=== PATIENT | male | born 1955 | race Caucasian/White ===

== ENCOUNTER → 2016-12-11 | Outpatient (CLI) | payer OTHER, BC ==
--- NOTE | 2016-12-11 10:42 | DX ---
PA and Lateral Upright Views December 11, 2016, at 9:09 a.m. Clinical History: 61-year-old male with a cough for one month. Rule out pneumonia. ICD-10 Diagnostic Codes: J40, R05, R06.2, and R06.89. Comparison Study: Chest, dated October 22, 2006. Findings: There are surgical clips to the left of the trachea, and there is cervicothoracic junction arthrodesis hardware, which is incompletely imaged. The cardiomediastinal silhouette is normal in siz e. There is some mild central perihilar bronchial wall thickening but no focal infiltrate, atelectasi s, pleural effusion, peripheral interstitial edema, or pneumothorax. There is a mild thoracic kyphosi s with secondary degenerative change. There are three orthopedic anchors projected over the right hum eral head. There is some intraluminal air within the distal thoracic esophageal vestibule versus a hi atal hernia. Impression: 1. Mild perihilar bronchitis without a focal infiltrate. 2. Query hiatal hernia versus air distention of the esophageal vestibule. Given the patient's history of a cough, could he have reflux? As clinically directed, esophagography may be of benefit.
== END ==
LOC: FIMAGING 08:58
PROVIDERS: ATTEND Internal Medicine
DX: R05 Cough (principal); R06.2 Wheezing; R06.89 Other abnormalities of breathing

== ENCOUNTER 2017-01-01 18:17 | Inpatient (IN) | payer OTHER, BC ==
--- NOTE | 2017-01-01 18:34 | EDPHY ---
H & P Stated Complaint: Post op pain L shoulder;surg 12/17;increased pain x 2days;sent for eval - Personal History Current Tetanus Diphtheria and Acellular Pertussis (TDAP): No - Medical/Surgical History Other PMH: rotator cuff surg 12/2016. [facility] - Social History Smoking Status: Former smoker Time Seen by Provider: 01/01/17 18:19 HPI/ROS: Chief complaint: Left shoulder pain, status post surgery History of present illness: This is a 61-year-old male sent to the emergency department by his orthopedic group for evaluation of left shoulder pain. Patient had an arthroscopic rotator cuff repair on December 17. He has been doing well until the last 2 days when he has developed increasing pain. Significant pain with range of motion. He was seen by his orthopedic group today, blood studies were obtained and he was noted to have an increased white blood cell count and C reactive protein. He was sent here for ultrasound guided joint aspiration to assess for infection. Patient does report pain. He denies other associated signs or symptoms. Review of systems: A 10 point review of systems was obtained and other than described above was negative (Madhu Saxena) - Physical Exam Exam: General Appearance: Alert, nontoxic. Eyes: Pupils equal and round no pallor or injection. ENT, Mouth: Mucous membranes moist. Respiratory: There are no retractions, lungs are clear to auscultation. Cardiovascular: Regular rate and rhythm. Radial pulses 2+ bilaterally. Gastrointestinal: Abdomen is soft and nontender, no masses, bowel sounds normal. Neurological: Alert and oriented. Strength and sensation intact and symmetrical. Skin: Warm and dry, no rashes. Musculoskeletal: Left shoulder is in an immobilizer. Psychiatric: Patient is oriented X 3, there is no agitation. (Madhu Saxena) Constitutional: Initial Vital Signs Temperature (C) 37.2 C 01/01/17 18:19 Heart Rate 98 01/01/17 18:19 Respiratory Rate 18 01/01/17 18:19 Blood Pressure 127/90 H 01/01/17 18:19 O2 Sat (%) 94 01/01/17 18:19 O2 Delivery Mode Room Air Allergies/Adverse Reactions: Penicillins Allergy (Unknown, Verified 01/01/17 18:26) Sulfa (Sulfonamide Antibiotics) Allergy (Unknown, Verified 01/01/17 18:26) Tetanus Vaccines and Toxoid Allergy (Unknown, Verified 01/01/17 18:26) Home Medications: Medication Instructions Recorded Aspirin [Aspirin 81mg (*)] 81 mg PO DAILY 01/01/17 Ibuprofen [Motrin (*)] 400 - 600 mg PO HS PRN 01/01/17 Multivitamins [Multivitamin (*)] 1 each PO DAILY 01/01/17 oxyCODONE IR [Oxycodone Ir (*)] 5 mg PO DAILY PRN 01/01/17 Medical Decision Making - Diagnostics Imaging: Left upper extremity ultrasound reveals a DVT, see report for complete details ( Madhu Saxena) ED Course/Re-evaluation: The patient was evaluated and managed by the physician's delivery assistant. My cosignature indicates that I reviewed the chart and I agree with the findings and plan of care as documented. I am the secondary supervising physician. ( Judie Champion) Patient is discussed with my secondary supervising physician Dr. Judie Champion. Patient presents to the emergency department for evaluation of left shoulder pain. He is sent by his orthopedic group for concern for septic shoulder. Ultrasound guided arthrocentesis is performed by Radiology. Evaluation of the aspirate is concerning for infection. Further a DVT is noted on US. Patient will be admitted to hospitalist service Dr. Deena Sheth. On- call orthopedic surgery Dr. Fields will see patient. On-call infectious disease specialist Dr. Woods has recommended monotherapy at this time with vancomycin. She will also consult on patient. I did discuss with hospitalist that I am not going to start patient on anticoagulants for his DVT in the ER as he is likely going to the OR this evening for washout. Follow-up on DVT and treatment will be determined by the hospitalist and orthopedic doctor. (Madhu Saxena) Differential Diagnosis: Included but not limited to postsurgical pain, septic joint, blood clot, fracture, dislocation (Madhu Saxena) - Data Points Laboratory Results: Laboratory Results 01/01/17 17:45 01/01/17 17:45 01/01/17 01/01/17 01/01/17 19:15 17:45 17:45 WBC RBC Hgb Hct MCV MCH MCHC RDW Plt Count MPV Neut % (Auto) Lymph % (Auto) [place] % (Auto) Eos % (Auto) Baso % (Auto) Nucleat RBC Rel Count Absolute Neuts (auto) Absolute Lymphs (auto) Absolute Monos (auto) Absolute Eos (auto) Absolute Basos (auto) Absolute Nucleated RBC Immature Gran % Immature Gran # PT 14.2 SEC SEC (12.0-15.0) INR 1.11 (0.83-1.16) APTT 29.8 SEC SEC (23.0-38.0) Sodium 139 mEq/L mEq/L (134-144) Potassium 3.9 mEq/L mEq/L (3.5-5.2) Chloride 102 mEq/L mEq/L (97-110) Carbon Dioxide 26 mEq/l mEq/l (22-31) Anion Gap 11 mEq/L mEq/L (8-16) BUN 13 mg/dL mg/dL (7-23) Creatinine 0.8 mg/dL mg/dL (0.7-1.3) Estimated GFR > 60 Glucose 97 mg/dL mg/dL (70-100) Calcium 9.7 mg/dL mg/dL (8.5-10.4) Synovial Source SYNOVIAL Synovial Color YELLOW H (CLS/PALE YL) Synovial Appearance CLOUDY H (CLEAR) Synovial WBC 80788 /mm3 H /mm3 (0-150) Synovial RBC 49060 /mm3 H /mm3 (0-0) Synovial Neutrophils 98 % H % (0-25) Synovial Lymphocytes 2 % % Synovial Crystals Pending 01/01/17 17:45 WBC 11.06 10^3/uL H 10^3/uL (3.80-9.50) RBC 4.72 10^6/uL 10^6/uL (4.40-6.38) Hgb 14.4 g/dL g/dL (13.7-17.5) Hct 42.7 % % (40.0-51.0) MCV 90.5 fL fL (81.5-99.8) MCH 30.5 pg pg (27.9-34.1) MCHC 33.7 g/dL g/dL (32.4-36.7) RDW 12.8 % % (11.5-15.2) Plt Count 351 10^3/uL 10^3/uL (150-400) MPV 9.0 fL fL (8.7-11.7) Neut % (Auto) 64.3 % % (39.3-74.2) Lymph % (Auto) 21.7 % % (15.0-45.0) [place] % (Auto) 11.5 % % (4.5-13.0) Eos % (Auto) 1.4 % % (0.6-7.6) Baso % (Auto) 0.8 % % (0.3-1.7) Nucleat RBC Rel Count 0.0 % % (0.0-0.2) Absolute Neuts (auto) 7.11 10^3/uL H 10^3/uL (1.70-6.50) Absolute Lymphs (auto) 2.40 10^3/uL 10^3/uL (1.00-3.00) Absolute Monos (auto) 1.27 10^3/uL H 10^3/uL (0.30-0.80) Absolute Eos (auto) 0.16 10^3/uL 10^3/uL (0.03-0.40) Absolute Basos (auto) 0.09 10^3/uL 10^3/uL (0.02-0.10) Absolute Nucleated RBC 0.00 10^3/uL 10^3/uL (0-0.01) Immature Gran % 0.3 % % (0.0-1.1) Immature Gran # 0.03 10^3/uL 10^3/uL (0.00-0.10) PT INR APTT Sodium Potassium Chloride Carbon Dioxide Anion Gap BUN Creatinine Estimated GFR Glucose Calcium Synovial Source Synovial Color Synovial Appearance Synovial WBC Synovial RBC Synovial Neutrophils Synovial Lymphocytes Synovial Crystals Microbiology Results: MICROBIOLOGY 01/01/17 19:15 Shoulder - Aspirate Gram Stain - Final Departure - Departure Disposition: [facility] Inpatient Acute Clinical Impression: Septic joint of left shoulder region Qualifiers: Septic arthritis organism: due to unspecified organism Qualified Code(s): M00.9 - Pyogenic arthritis, unspecified DVT (deep venous thrombosis) Qualifiers: DVT location: upper extremity Affected thrombotic vein of extremity: other upper extremity vein Laterality: left Chronicity: acute Qualified Code(s): I82.622 - Acute embolism and thrombosis of deep veins of left upper extremity Condition: Fair
[2017-01-01] MEDS ORDERED: NA BICARBONATE 50 MEQ/50 ML VIAL ONE (18:54)
[2017-01-01 19:55] LABS: % IMMATURE GRANULYOCYTES 0.3 % (0.0-1.1); ABSOLUTE IMMATURE GRANULOCYTES 0.03 10^3/uL (0.00-0.10); ADD DIFF? NO; ADD MORPH? NO; ADD SCAN? NO; ATYPICAL LYMPHOCYTE FLAG 10 (0-99); FRAGMENT RBC FLAG 0 (0-99); HEMATOCRIT 42.7 % (40.0-51.0); HEMOGLOBIN 14.4 g/dL (13.7-17.5); LEFT SHIFT FLG 0 (0-99); LIPEMIA HEMOLYSIS FLAG 80 (0-99); MEAN CELL HEMOGLOBIN 30.5 pg (27.9-34.1); MEAN CELL HEMOGLOBIN CONCENTR. 33.7 g/dL (32.4-36.7); MEAN CELL VOLUME 90.5 fL (81.5-99.8); PLATELET CLUMPS FLAG 0 (0-99); PLATELET COUNT 351 10^3/uL (150-400); RED BLOOD CELL COUNT 4.72 10^6/uL (4.40-6.38); RED CELL DISTRIBUTION WIDTH 12.8 % (11.5-15.2)
[2017-01-01 19:58] LABS: INR 1.11 (0.83-1.16); PROTIME(PATIENT) 14.2 SEC (12.0-15.0)
[2017-01-01 19:59] LABS: APTT 29.8 SEC (23.0-38.0)
[2017-01-01 20:05] LABS: WBC, SYNOVIAL FLUID 83047 /mm3 (0-150)
[2017-01-01 20:05] LABS: ANION GAP 11 mEq/L (8-16); CALCIUM 9.7 mg/dL (8.5-10.4); CARBON DIOXIDE 26 mEq/l (22-31); CHLORIDE 102 mEq/L (97-110); CREATININE 0.8 mg/dL (0.7-1.3); GLOMERULAR FILTRATION RATE > 60; GLUCOSE 97 mg/dL (70-100); POTASSIUM 3.9 mEq/L (3.5-5.2); SODIUM 139 mEq/L (134-144)
[2017-01-01] MEDS ORDERED: VANCOMYCIN 1.25 GM in D5W 250 ML IV ONE (21:00)
[2017-01-01 21:58] LABS: CRYSTALS, SYNOVIAL FLUID NONE SEEN (NONE SEEN)
--- NOTE | 2017-01-01 22:58 | PDGENHP ---
History and Physical History and Physical: Orthopaedic Surgery Consult HPI: 61y RHD M s/p Left Rotator cuff repair 12/17/2016 by Nida Tabares p/w 2 days of increasing L shoulder pain. Had some subjective chills but did not measure himself ot determine if he had a fever. Pain was very bad yesterday (took two oxycontin last night for increased pain after having been off of them). some improvement just recently, pain now 3/10. Some spasms in the shoulder and neck musculature. No numbness or tingling in LUE. PMHx: prior blood clots and DVT - extensive workup negative, per pt. Denies arthropathies before PSHx: R shoulder scope, R elbow removal of foreign bodies, c5-c6 fusion, lens replacements FamHx: denies h/o clots in family. 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 variable drinking from 4-5 pints per week to few drinks at all Meds: ASA, Vitamin ROS: No changes in vision/hearing. Minimal nausea. No Pulm or CV issues. No GI upset. No issues. Notes some intermittent inner right thigh pain over past years PE: AxOx3 unlabored breathing LUE in sling. TTP along trapezius, not midline posterior Minimal edema of L shoulder. Moderate TTP Left shoulder. Pain with ROM L shoulder. Increased warmth SILT A/R/U/M. 5/5 APB/EPL/FDS/FDP2,5/IO 2+ Rad pulse Aspirate (by ED): 83K WBC AP: 61y RHD M s/p cuff repair 12/17/2016 p/w L septic shoulder - Plan for OR arthroscopic I&D of Left shoulder - Pt ate in afternoon. Case delayed until anesthesia appropriate - Pain control - Recommend BUE and BLE venous doppler ultrasounds to rule out DVTs given history of thigh pain and report of LUE DVT during joint aspiration - NWB LUE - Discussed risks of surgery with patient including neurovascular injury, bleeding, incomplete pain relief, recurrent infection, structural/cuff injury
[2017-01-01] MEDS ORDERED: fentaNYL 100 MCG/2 ML INJ ONE ×2 (23:06→23:26)
[2017-01-01] MEDS ORDERED: PROPOFOL 200 MG/20 ML VIAL ONE (23:06)
[2017-01-01] MEDS ORDERED: ONDANSETRON 4 MG/2 ML VIAL ONE (23:07)
[2017-01-01] MEDS ORDERED: LIDOCAINE 2% 5 ML SDV ONE (23:07)
[2017-01-01] MEDS ORDERED: DEXAMETHASONE 4 MG/ML VIAL ONE (23:07)
[2017-01-01] MEDS ORDERED: SUCCINYLCHOLINE CHLORIDE*ANESTHESIA ONLY*200 MG/10 ML SYR IVP ONE (23:07)
[2017-01-01] MEDS ORDERED: LIDO/EPI 1% **Not for Epidural 20 ML MDV ONE (23:18)
[2017-01-01] MEDS ORDERED: BUPIVACAINE/EPI 0.25% 30 ML SDV ONE (23:18)
[2017-01-01] MEDS ORDERED: PHENYLEPHRINE HCL 100 MCG/ML SYR ONE ×2 (23:29→23:43)
[2017-01-01] MEDS ORDERED: HYDROmorphONE/DILAUDID 2 MG/ML INJ ONE (23:30)
[2017-01-01] MEDS ORDERED: VASOPRESSIN 20 UNIT/ML VIAL ONE (23:48)
[2017-01-02] MEDS ORDERED: LIDOCAINE 1% 5 ML SDV ONE (01:28)
--- NOTE | 2017-01-02 01:40 | POSTOPPROG ---
Post Op Note Date of Operation: 01/02/17 Surgeon: Emmanuel Fields Anesthesia: GET(General Endotracheal) Pre-op Diagnosis: Left septic shoulder Post-op Diagnosis: Same Indication: 61y M s/p L rotator cuff repair surgery 12/17/2016 p/w ~2 days of L sh pain Procedure: Arthroscopic I&D of Left shoulder Findings: Infection in L shoulder joint and subacromial space Inf/Abcess present in the surg proc area at time of surgery?: Yes
[2017-01-02] MEDS ORDERED: ONDANSETRON 4 MG/2 ML VIAL IVP PRN (03:40)
[2017-01-02] MEDS ORDERED: ONDANSETRON DISINTEGRATING 4 MG TAB PO PRN (03:40)
[2017-01-02] MEDS ORDERED: HYDROCODONE/APAP 5/325 TAB PO PRN (03:55)
[2017-01-02] MEDS ORDERED: HYDROmorphONE/DILAUDID 1 MG/ML SYR IVP PRN (03:55)
[2017-01-02] MEDS ORDERED: ACETAMINOPHEN 500 MG TAB PO PRN (03:55)
[2017-01-02] MEDS ORDERED: NS 1,000 ML IV SCH (04:00)
--- NOTE | 2017-01-02 04:38 | PDGENHP ---
History and Physical - Chief Complaint L shoulder pain - History of Present Illness Patient is a 61-year-old male with a history of DVT in the remote past, osteoarthritis with multiple orthopedic surgeries, most recently left rotator cuff repair on 12/17 who presents to the ED with worsening left shoulder pain. Patient states initially postoperatively pain was tolerable, he took the prescribed opiates for only 2 days, and then his pain was controlled with NSAIDs only. However about 2 days ago he began to have new, more intense pain in the joint. On the evening of 12/31 he reports subjective fever and chills and significant pain not relieved by his prescribed Bentley. Today he was at his a.m. physical therapy appointment when the PT noticed increased swelling in the joint and patient complained of intense pain. His orthopedist's office was called, and recommended he come in for lab evaluation. ESR and CRP were ordered and were both elevated, so patient was advised to come to the ED for further evaluation. On arrival to the ED patient was afebrile and hemodynamically stable. Labs revealed mild leukocytosis and exam was concerning for septic joint. For id was consulted and he was initiated on IV vancomycin. Ultrasound of the left upper extremity was obtained and revealed new left subclavian thrombus extending into the left axillary and basilic veins. Patient was then brought to the OR for washout of his joint and then admitted to the hospital service for further management. History Information - Allergies/Home Medication List Allergies/Adverse Reactions: Penicillins Allergy (Unknown, Verified 01/01/17 18:26) Sulfa (Sulfonamide Antibiotics) Allergy (Unknown, Verified 01/01/17 18:26) Tetanus Vaccines and Toxoid Allergy (Unknown, Verified 01/01/17 18:26) Home Medications: Aspirin [Aspirin 81mg (*)] 81 mg PO DAILY 01/01/17 [Last Taken 01/01/17] Ibuprofen [Motrin (*)] 400 - 600 mg PO HS PRN 01/01/17 [Last Taken Unknown] Multivitamins [Multivitamin (*)] 1 each PO DAILY 01/01/17 [Last Taken 01/01/17] oxyCODONE IR [Oxycodone Ir (*)] 5 mg PO DAILY PRN 01/01/17 [Last Taken 12/31/16 21:00] I have personally reviewed and updated: family history, medical history, social history, surgical history - Past Medical History Additional medical history: CVA, 2004, no residual deficits. cervical radiculopathy. history of right upper extremity DVT - Surgical History Additional surgical history: bilateral rotator cuff repairs. C-spine fusion x2. right elbow fracture repair x2. 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 [employer] Review of Systems ROS: 10pt was reviewed & negative except for what was stated in HPI & below Physical Exam Temp Pulse Resp BP Pulse Ox 36.6 C 92 13 113/73 97 01/02/17 02:07 01/02/17 02:07 01/02/17 02:07 01/02/17 02:07 01/02/17 02:07 O2 (L/minute) 3 Constitutional: no apparent distress, appears nourished, not in pain Eyes: PERRL, anicteric sclera, EOMI Ears, Nose, Mouth, Throat: moist mucous membranes, hearing normal, ears appear normal, no oral mucosal ulcers Cardiovascular: regular rate and rhythym, no murmur, rub, or gallop, pulses symmetric bilaterally, No JVD, No edema Peripheral Pulses: 2+: dorsalis-pedis (R), dorsalis-pedis (L) Respiratory: no respiratory distress, no rales or rhonchi, clear to auscultation Gastrointestinal: normoactive bowel sounds, soft, non-tender abdomen, no palpable masses, No guarding, No rebound, No distension Genitourinary: no bladder fullness, no bladder tenderness Skin: warm, normal color, no rashes or abrasions, no fluctuance, no induration, No mottled Musculoskeletal: other ( left shoulder in sling with operative dressing in place clean dry and intact.) Neurologic: AAOx3, sensation intact bilaterally, CN II-XII Intact, No weakness, No numbness, No pronator drift Psychiatric: interacting appropriately, not anxious, not encephalopathic, thought process linear Lab Data & Imaging Review 01/01/17 17:45 01/01/17 17:45 WBC 11.06 10^3/uL (3.80-9.50) H 01/01/17 17:45 RBC 4.72 10^6/uL (4.40-6.38) 01/01/17 17:45 Hgb 14.4 g/dL (13.7-17.5) 01/01/17 17:45 Hct 42.7 % (40.0-51.0) 01/01/17 17:45 MCV 90.5 fL (81.5-99.8) 01/01/17 17:45 MCH 30.5 pg (27.9-34.1) 01/01/17 17:45 MCHC 33.7 g/dL (32.4-36.7) 01/01/17 17:45 RDW 12.8 % (11.5-15.2) 01/01/17 17:45 Plt Count 351 10^3/uL (150-400) 01/01/17 17:45 MPV 9.0 fL (8.7-11.7) 01/01/17 17:45 Neut % (Auto) 64.3 % (39.3-74.2) 01/01/17 17:45 Lymph % (Auto) 21.7 % (15.0-45.0) 01/01/17 17:45 [place] % (Auto) 11.5 % (4.5-13.0) 01/01/17 17:45 Eos % (Auto) 1.4 % (0.6-7.6) 01/01/17 17:45 Baso % (Auto) 0.8 % (0.3-1.7) 01/01/17 17:45 Nucleat RBC Rel Count 0.0 % (0.0-0.2) 01/01/17 17:45 Absolute Neuts (auto) 7.11 10^3/uL (1.70-6.50) H 01/01/17 17:45 Absolute Lymphs (auto) 2.40 10^3/uL (1.00-3.00) 01/01/17 17:45 Absolute Monos (auto) 1.27 10^3/uL (0.30-0.80) H 01/01/17 17:45 Absolute Eos (auto) 0.16 10^3/uL (0.03-0.40) 01/01/17 17:45 Absolute Basos (auto) 0.09 10^3/uL (0.02-0.10) 01/01/17 17:45 Absolute Nucleated RBC 0.00 10^3/uL (0-0.01) 01/01/17 17:45 Immature Gran % 0.3 % (0.0-1.1) 01/01/17 17:45 Immature Gran # 0.03 10^3/uL (0.00-0.10) 01/01/17 17:45 PT 14.2 SEC (12.0-15.0) 01/01/17 17:45 INR 1.11 (0.83-1.16) 01/01/17 17:45 APTT 29.8 SEC (23.0-38.0) 01/01/17 17:45 Sodium 139 mEq/L (134-144) 01/01/17 17:45 Potassium 3.9 mEq/L (3.5-5.2) 01/01/17 17:45 Chloride 102 mEq/L (97-110) 01/01/17 17:45 Carbon Dioxide 26 mEq/l (22-31) 01/01/17 17:45 Anion Gap 11 mEq/L (8-16) 01/01/17 17:45 BUN 13 mg/dL (7-23) 01/01/17 17:45 Creatinine 0.8 mg/dL (0.7-1.3) 01/01/17 17:45 Estimated GFR > 60 01/01/17 17:45 Glucose 97 mg/dL (70-100) 01/01/17 17:45 Calcium 9.7 mg/dL (8.5-10.4) 01/01/17 17:45 Synovial Source SYNOVIAL 01/01/17 19:15 Synovial Color YELLOW (CLS/PALE YL) H 01/01/17 19:15 Synovial Appearance CLOUDY (CLEAR) H 01/01/17 19:15 Synovial WBC 84338 /mm3 (0-150) H 01/01/17 19:15 Synovial RBC 89604 /mm3 (0-0) H 01/01/17 19:15 Synovial Neutrophils 98 % (0-25) H 01/01/17 19:15 Synovial Lymphocytes 2 % 01/01/17 19:15 Visualized and Interpreted imaging results: Yes Interpretation: Left upper extremity Doppler: Extensive left upper extremity DVT of left subclavian to left basilic vein Assessment & Plan Assessment: patient is a 61-year-old male with history of CVA, prior DVT and recent left rotator cuff repair who presents with increased left shoulder pain. Was determined to have left septic arthritis, is now S/P joint washout and culture. In addition patient has new left upper extremity DVT. Plan: # septic arthritis Patient with leukocytosis and left joint fluid aspiration consistent with septic arthritis in recently operated left shoulder joint. He is now status post OR washout. Will follow up blood and fluid cultures, continue IV vancomycin and will follow up ID consult. Patient does not meet sepsis criteria given lack of fever, tachypnea or tachycardia. Will control pain prn and given gentle IVF hydration. # Acute left upper extremity DVT This is patient's 2nd DVT, although both appear to have been provoked by surgical procedure. Will initiate systemic anticoagulation with Lovenox as patient decides his preference for long-term therapy. Patient does not have any chest pain, palpitations, shortness of breath, tachypnea or hypoxia that is concerning for pulmonary embolism. Will check dopplers of all extremities and also TTE. # h/o CVA Patient without any obvious deficits. Will continue aspirin in addition to systemic anticoagulation. # dispo: admit to inpatient service for > 2 [place] stay given septic arthritis # gen: regular diet DVT ppx: on systemic lovenox Full code
[2017-01-02] MEDS ORDERED: CALCIUM CARBONATE 500 MG CHEWABLE TAB PO PRN (04:56)
[2017-01-02] MEDS ORDERED: ENOXAPARIN 80 MG/0.8 ML SYR SC ONE (05:00)
[2017-01-02 05:55] LABS: % IMMATURE GRANULYOCYTES 0.5 % (0.0-1.1); ABSOLUTE IMMATURE GRANULOCYTES 0.05 10^3/uL (0.00-0.10); ADD DIFF? NO; ADD MORPH? NO; ADD SCAN? NO; ATYPICAL LYMPHOCYTE FLAG 0 (0-99); FRAGMENT RBC FLAG 0 (0-99); HEMATOCRIT 35.8 % (40.0-51.0); HEMOGLOBIN 12.3 g/dL (13.7-17.5); LEFT SHIFT FLG 10 (0-99); LIPEMIA HEMOLYSIS FLAG 90 (0-99); MEAN CELL HEMOGLOBIN 30.5 pg (27.9-34.1); MEAN CELL HEMOGLOBIN CONCENTR. 34.4 g/dL (32.4-36.7); MEAN CELL VOLUME 88.8 fL (81.5-99.8); MEAN PLATELET VOLUME 9.1 fL (8.7-11.7); PLATELET CLUMPS FLAG 0 (0-99); PLATELET COUNT 289 10^3/uL (150-400); RED BLOOD CELL COUNT 4.03 10^6/uL (4.40-6.38); RED CELL DISTRIBUTION WIDTH 12.7 % (11.5-15.2)
[2017-01-02 06:16] LABS: INR 1.19 (0.83-1.16); PROTIME(PATIENT) 15.1 SEC (12.0-15.0)
[2017-01-02 06:17] LABS: APTT 30.9 SEC (23.0-38.0)
[2017-01-02 06:27] LABS: ANION GAP 10 mEq/L (8-16); CALCIUM 8.9 mg/dL (8.5-10.4); CARBON DIOXIDE 23 mEq/l (22-31); CHLORIDE 106 mEq/L (97-110); CREATININE 0.8 mg/dL (0.7-1.3); GLOMERULAR FILTRATION RATE > 60; GLUCOSE 174 mg/dL (70-100); MAGNESIUM 2.1 mg/dL (1.6-2.3); POTASSIUM 4.7 mEq/L (3.5-5.2); SODIUM 139 mEq/L (134-144)
[2017-01-02 06:54] LABS: C-REACTIVE PROTEIN 175.4 mg/L (<10.0)
[2017-01-02 08:12] LABS: SEDIMENTATION RATE 51 MM/HR (0-20)
[2017-01-02] MEDS: ENOXAPARIN 80 MG/0.8 ML SYR SC SCH ×2 (09:19→20:41)
[2017-01-02] MEDS: VANCOMYCIN 1.25 GM in D5W 250 ML IV SCH ×2 (09:19→20:41)
--- NOTE | 2017-01-02 10:28 | HOSPPROG ---
Hospitalist Progress Note Assessment/Plan: DIAGNOSES: -Septic arthritis postoperative left shoulder -DVT left upper extremity, extensive without signs of PE PLANS: -follow cultures closely continue current vancomycin antibiotic -Continue anticoagulation -Ambulation SUBJECTIVE: - much less chills today and less pain -Eating well OBJECTIVE Vitals reviewed: stable without fever Exam: alert oriented skin warm dry color ok resps not labored lungs clear BSs heart regular abd soft nondistended nontender, bowel sounds present limbs his left hand is warmer and less swollen than yesterday, shoulder is in dressing, limbs otherwise warm, no edema iv site ok Cultures with no growth to date Objective: Vital Signs Temp Pulse Resp BP Pulse Ox 36.6 C 84 16 120/81 H 95 01/02/17 07:12 01/02/17 07:12 01/02/17 07:12 01/02/17 07:12 01/02/17 07:12 Microbiology 01/01/17 23:50 Gram Stain - Final Shoulder - Anaerobic Tube/Swab 01/01/17 23:50 Gram Stain - Final Shoulder - Swab Laboratory Results 01/02/17 05:13 01/02/17 05:13 01/01/17 01/02/17 01/03/17 06:59 06:59 06:59 Intake Total 1780 Output Total 805 725 Balance 975 -725 PT 15.1 SEC (12.0-15.0) H 01/02/17 05:13 INR 1.19 (0.83-1.16) H 01/02/17 05:13 ICD10 Worksheet Patient Problems: Problems Problem Status Onset DVT (deep venous thrombosis) Acute Septic joint of left shoulder region Acute
--- NOTE | 2017-01-02 12:50 | SUROPNOTE ---
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 Aspirate from ED had 83k WBC Operative report: Consent was reviewed with the patient and he elected to proceed. The patient was taken to OR and transferred to the bed. Anesthesia was induced. The head was carefully guided into the hu and the patient raised into the beach chair position with a bump under his knees. The nonop arm was placed on foam and protected. The operative arm was hung with kerlix from a post and the back of the bed removed to expose the operative shoulder. The arm and shoulder were prepped and draped in the typical fashion. A timeout was performed confirming the patient, procedure, and surgical site. The prior incisions were marked out. The posterior portal was created and purulent fluid was expressed from the joint when the obturator was removed from the trocar. Some of this fluid was sent for specimen. The camera was introduced and synovitis and thready tissue seen in the glenohumeral joint. The anterior portal was re-established and the shaver introduced. The shaver was used to remove a large amount of synovitis around the joint. inspection of the joint demonstrated that the rotator cuff repair was still intact on the foot print. The camera and shaver were switched to allow for additional debridement from the posterior angle/access. After satisfactory debridement performed, the obturator and trocar were re-introduced into the subacromial space from the posterior portal. additional purulent fluid drained from this space after the obturator removed. This was also sent off The camera was inserted and the anterolateral portal re-established to the subacromial space. A larger amount of synovitis, mucus-like tissue and substance was visible in this space. The shaver was introduced and the subacromial space debrided. The intact suture anchors/mattress were found after debriding off the rotator cuff substance. the rotator cuff repair was found to be stable. Extensive debridement was performed anteriorly, laterally in the sulcus, superiorly under the acromion, and posteriorly. A smaller debridement was done medially to avoid bleeding. Final images were taken of the debrided space. ~9 liters of fluid had been delivered through the joint. The instruments were removed, excess fluid pushed out of the joint and the portals closed with 3-O nylon sutures and then sterile dressings applied. The patient was placed back into his brace/sling. He was transferred back to the bed and taken to PACU Instrument count correct at the conclusion of the case Implants: None Complications: None EBL: 50cc Specimen: cultures Drain: None
--- NOTE | 2017-01-02 14:00 | GCON ---
INFECTIOUS DISEASE CONSULTATION DATE OF CONSULTATION: 01/02/2017 Requesting physician: Dr. Emmanuel Fields. REASON FOR CONSULTATION: To assist in the management of this 61-year-old male, status post rotator cuff repair on December 17, now with left shoulder septic arthritis/ postoperative infection. HISTORY OF PRESENT ILLNESS: The patient is a 61 -year-old gentleman whose previous medical history is notable for the followin. History of right upper extremity DVT 25 years ago, treated with Coumadin for 6 months. 2. History of CVA in 2002, no residual deficits. The patient states he had a "huge workup" at the time for hypercoagulable state that was negative. The patient declined taking Coumadin for life and has been taking baby aspirin ever since. 3. Cervical radiculopathy. Previous surgical history: 1. History of right rotator cuff repair. 2. C-spine fusion x2. 3. Right elbow fracture repair x2. 4. Tonsillectomy. Regarding his present issues, the patient underwent a left rotator cuff repair on December 17 without complications. He states that it was hurting more than he felt it should be. The incisions were never red and never drained. He states that he was trying to do his physical therapy exercises, but over time these became more difficult with increasing pain. He also noticed that his left arm began to swell. This past week, the patient developed some tactile fevers and shaking chills, and the pain continued to worsen. He saw his orthopedic surgeon who arranged for an arthrocentesis. This was done yesterday and revealed 83,047 whites and 33,487 reds, with 98% neutrophils. Gram stain is showing rare gram-positive cocci. The patient was referred to the emergency room for further evaluation and treatment of left shoulder septic arthritis. He was started on vancomycin. The patient was taken to the emergency room last night by Dr. Emmanuel Fields who tells me that there was evidence of infection in the left shoulder joint, but the rotator cuff repair itself looks fine, with sutures in place. There was infection in both the left shoulder joint and subacromial space. This was thoroughly washed out. Cultures were obtained. Gram stain showed 2+ polys and rare gram-positive cocci. I am now asked to assist in his management. Also of note, the patient had a left upper extremity ultrasound that showed a significant and extensive left upper extremity venous thrombosis extending from the left subclavian vein through the axillary and basilic veins to the elbow. Postoperatively, the patient states he feels much better. His pain is under control. He denies presently fever, shaking chills, nausea, vomiting, and diarrhea. He is mildly constipated. No burning with urination or other. Aside from what is listed above, 10 systems are reviewed, and all are negative. He has no tingling or numbness in his hands or arms, and no pleuritic pain or shortness of breath. PREVIOUS MEDICAL HISTORY: As outlined above. ALLERGIES: Penicillin, sulfa, tetanus vaccine. MEDICATIONS: Presently include vancomycin 1.25 g IV q.12 hours, [place], Zofran, and Lovenox. SOCIAL HISTORY: The patient lives in [place] and is . History of tobacco many years ago as a teenager for 5 years. Minimal alcohol. No illicit substances. 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 No unusual exposures. FAMILY HISTORY: Unremarkable for any clotting disorders. His father had AML. REVIEW OF SYSTEMS: As outlined above. Otherwise, 10 systems are reviewed, and all are negative. PHYSICAL EXAMINATION: VITAL SIGNS: T-current 37. T-max is same. Heart rate 83. Blood pressure 111/69. He is satting 96% on 3 L. GENERAL: Well-nourished , well-developed gentleman lying in bed, in no apparent distress. HEENT: Atraumatic, normocephalic. Pupils equal, round, and react to light. Extraocular movements are intact. No conjunctival injection. No icterus or petechiae. Mucous membranes moist. No oral lesions noted. Dentition in fair repair. NECK: Trachea is midline. No thyromegaly or palpable thyroid nodules. No cervical or supraclavicular lymphadenopathy. CARDIOVASCULAR: S1 and S2. No rubs, gallops, or murmurs. LUNGS: Clear to auscultation anterolaterally, with no rales, rhonchi, or wheeze. The patient's left shoulder is dressed with a primary surgical dressing; I did not take this down. ABDOMEN: Soft. No organomegaly or tenderness to palpation. No muscle belly tenderness. EXTREMITIES: No clubbing, cyanosis, or edema. SKIN: Warm and dry. No obvious rashes. LABORATORY DATA: Microbiology: Blood cultures x2 from January 01 are pending. Shoulder shows 1+ PMNs and rare gram-positive cocci. Operative culture showed 2 + PMNs and rare gram-positive cocci. White blood cell count of 9.8, down from 11 on admission. Hematocrit of 35.8. Platelet count of 289. CRP of 175. BUN and creatinine 10/0.8. Liver function tests within normal limits. IMPRESSION: 61-year-old male status- post left rotator cuff repair on December 17, who now presents with postoperative left shoulder septic arthritis and extensive LUE venous thrombosis. Likely pathogens include Staphylococcus, including MRSA/ MSSA and coagulase-negative Staph. P acnes can also be culpable in this scenario. Gram negative pathogens seem less likely. PLAN: 1. Blood cultures have been sent and are pending. 2. Continue Vancomycin as you are; check trough tomorrow. 3. Hopefully will not require a second surgical washout. Thank you very much for consulting Infectious Diseases. We will continue to follow this patient with you. /[id number]/MODL MTDD
[2017-01-02] MEDS ORDERED: ENOXAPARIN 80 MG/0.8 ML SYR SC SCH (18:00)
[2017-01-03] MEDS: VANCOMYCIN 1.25 GM in D5W 250 ML IV SCH ×2 (10:25→20:21)
[2017-01-03] MEDS: ENOXAPARIN 80 MG/0.8 ML SYR SC SCH ×2 (10:25→20:21)
--- NOTE | 2017-01-03 13:14 | PCMIDPN ---
Assessment/Plan: 1. Left shoulder septic arthritis after rotator cuff repair: Continue vancomycin. Await culture results, and will tailor antibiotics accordingly. Explained to the patient the plan moving forward, and need for PICC line in the right arm either tomorrow or Wednesday. Reviewed patient's penicillin allergy; he tells me that when he was 6 years old he received penicillin for tonsillitis, and states that his scrotum became swollen he developed a rash. He does not recall throat closure or tongue swelling. 01/03/17 13:15 Subjective: In good spirits. Tells me he sleeping quite a bit. Denies tingling or numbness in his fingers. Objective: Vancomycin 1.25 g IV q.12 hours day 1. Afebrile Vital Signs Temp Pulse Resp BP Pulse Ox 37 C 74 20 109/71 93 01/03/17 12:21 01/03/17 12:21 01/03/17 12:21 01/03/17 12:21 01/03/17 12:21 Microbiology 01/01/17 23:50 Gram Stain - Final Shoulder - Anaerobic Tube/Swab 01/01/17 23:50 Gram Stain - Final Shoulder - Swab Laboratory Results 01/02/17 05:13 01/02/17 05:13 01/02/17 01/03/17 01/04/17 05:59 05:59 05:59 Intake Total 1780 1750 550 Output Total 805 2375 325 Balance 975 -625 225 ESR 51 MM/HR (0-20) H 01/02/17 05:13 C-Reactive Protein 175.4 mg/L (<10.0) H 01/02/17 05:13 Vanco trough 13.7 Shoulder Gram stain 1+ Gram-positive cocci, culture pending Blood cultures no growth - Physical Exam General Appearance: alert, no apparent distress EENT: pharynx normal, No scleral icterus Respiratory: lungs clear Cardiac/Chest: regular rate, rhythm Extremities: other (Left shoulder dressed; I took down the dressing and the incisions look fine. No erythema.) Skin: No rash ICD10 Worksheet Patient Problems: Problems Problem Status Onset DVT (deep venous thrombosis) Acute Septic joint of left shoulder region Acute
--- NOTE | 2017-01-03 16:25 | PDCONSULT ---
Area Cleaner Note: Orthopaedic Progress Note S: Patient worked on some pendulums today, no issues with that. Some pain from surgery, but not intense. Overall doing wel just as yesterday morning when we talked. PE: CDI LUE bandage, in sling. AP: 61y M s/p Left shoulder I&D POD#2, recent L rotator cuff repair ~two weeks ago - IV abx per ID - Continue with post rotator cuff limited ROM/WB per that regimen for now ( pendulums) - F/up with Dr. Tabares for overall shoulder care. - Pt given option to also followup with me once just to check up on post I&D status - Recommend BLE ulstrasound to followup on Right thigh pain and ensure no clots elsewhere. -Emmanuel Fields
--- NOTE | 2017-01-03 16:34 | HOSPPROG ---
Hospitalist Progress Note Assessment/Plan: DIAGNOSES: -SEPTIC ARTHRITIS POSTOPERATIVE LEFT SHOULDER -DVT LEFT UPPER EXTREMITY, EXTENSIVE WITHOUT SIGNS OF PE -PAIN IN CALVES -ELEVATED BLOOD GLUCOSE ON LAST MET PANEL, NO HX OF DIABETES -OBSTRUCTIVE SLEEP APNEA, UNTREATED PLANS: -follow cultures closely continue current vancomycin antibiotic -Continue anticoagulation -Ambulation, arm exercises -will repeat blood sugar and check HgA1c -I spent 20+ minutes reviewing his sleep apnea symptoms and history, and reviewing the various options for management of ARISTEO, and recommended strongly that he be retested after he has recovered from surgry, and make an appointment to see Dr Umanzor whom he saw for diagnosis earlier. Total visit time today > 45 mins 14:00 - past 14:40 SUBJECTIVE: -still w nocturnal sweats but otherwise no new sxs, still w pain and limited mobility at shoulder -Eating well -c/o some pain in calves today -mentions that he has diagnosis of ARISTEO, and was recommended for CPAP in past, but he did not ever start that. He did lose some weight and seemed to have less symptoms after that. However he recently regained some weight and since his surgery he has had sxs again. OBJECTIVE Vitals reviewed: stable without fever Exam: alert oriented skin warm dry color ok resps not labored lungs clear BSs heart regular abd soft nondistended nontender, bowel sounds present limbs still very mild swelling L hand, shoulder is in dressing, limbs otherwise warm, iv site ok Cultures with no growth to date Objective: Vital Signs Temp Pulse Resp BP Pulse Ox 37 C 74 20 109/71 93 01/03/17 12:21 01/03/17 12:21 01/03/17 12:21 01/03/17 12:21 01/03/17 12:21 Microbiology 01/01/17 23:50 Gram Stain - Final Shoulder - Swab 01/01/17 23:50 Gram Stain - Final Shoulder - Anaerobic Tube/Swab Laboratory Results 01/02/17 05:13 01/02/17 05:13 01/02/17 01/03/17 01/04/17 06:59 06:59 06:59 Intake Total 1780 1750 550 Output Total 805 5775 325 Balance 975 -625 225 PT 15.1 SEC (12.0-15.0) H 01/02/17 05:13 INR 1.19 (0.83-1.16) H 01/02/17 05:13 ICD10 Worksheet Patient Problems: Problems Problem Status Onset DVT (deep venous thrombosis) Acute Septic joint of left shoulder region Acute
[2017-01-04] MEDS: ENOXAPARIN 80 MG/0.8 ML SYR SC SCH ×2 (09:11→21:00)
[2017-01-04] MEDS: VANCOMYCIN 1.25 GM in D5W 250 ML IV SCH ×2 (09:11→21:00)
--- NOTE | 2017-01-04 11:00 | HOSPPROG ---
Hospitalist Progress Note Assessment/Plan: DIAGNOSES: -SEPTIC ARTHRITIS POSTOPERATIVE LEFT SHOULDER -staph capitis in wound cx; will need to wait for abx sensitivity as this organism can have significant resistance -DVT LEFT UPPER EXTREMITY, EXTENSIVE WITHOUT SIGNS OF PE -PAIN IN CALVES -ELEVATED BLOOD GLUCOSE ON LAST MET PANEL, NO HX OF DIABETES -OBSTRUCTIVE SLEEP APNEA, UNTREATED Overall he is doing well with improved pain, mobility, and resolution of fever/ fever sxs Will need to review plans with the ortho team. If he will not need further surgical washout may be able to DC soon but will want to see abx sensitivity. He will need prolonged course abx, so will need PICC which we can arrange any time now as blood cx's negative PLANS: -await antibiotic sensitivity, continue current vancomycin -Continue anticoagulation -will review with ortho team; plan on PICC when he is ready for DC -Ambulation, arm exercises -will repeat blood sugar and check HgA1c - recommended that he be retested for extent of ARISTEO after he has fully recovered from surgery, and make an appointment to see Dr Umanzor whom he saw for diagnosis earlier. SUBJECTIVE: -no more sweats -Eating well, more walking in [place] OBJECTIVE Vitals reviewed: stable without fever Exam: alert oriented skin warm dry color ok resps not labored lungs clear BSs heart regular abd soft nondistended nontender, bowel sounds present limbs less swelling L hand, shoulder is in dressing, limbs otherwise warm, iv site ok CULTURES: wound cx so far with a Staph Capitis (skin jordyn) with pending abx sensitivity IMAGING: US doppler of legs with no thrombus or other concerning abnormality Objective: Vital Signs Temp Pulse Resp BP Pulse Ox 36.7 C 82 15 125/91 H 93 01/04/17 07:59 01/04/17 07:59 01/04/17 07:59 01/04/17 07:59 01/04/17 07:59 Microbiology 01/01/17 23:50 Gram Stain - Final Shoulder - Anaerobic Tube/Swab 01/01/17 23:50 Gram Stain - Final Shoulder - Swab Laboratory Results 01/02/17 05:13 01/02/17 05:13 01/03/17 01/04/17 01/05/17 06:59 06:59 06:59 Intake Total 1750 850 Output Total 8948 8455 Balance -625 -1775 PT 15.1 SEC (12.0-15.0) H 01/02/17 05:13 INR 1.19 (0.83-1.16) H 01/02/17 05:13 ICD10 Worksheet Patient Problems: Problems Problem Status Onset DVT (deep venous thrombosis) Acute Septic joint of left shoulder region Acute
[2017-01-04] MEDS ORDERED: ALTEPLASE 2 MG VIAL IVP PRN (11:05)
--- NOTE | 2017-01-04 11:06 | PCMIDPN ---
Assessment/Plan: Assessment: Plan: Objective: Vital Signs Temp Pulse Resp BP Pulse Ox 36.7 C 82 15 125/91 H 93 01/04/17 07:59 01/04/17 07:59 01/04/17 07:59 01/04/17 07:59 01/04/17 07:59 Microbiology 01/01/17 23:50 Gram Stain - Final Shoulder - Anaerobic Tube/Swab 01/01/17 23:50 Gram Stain - Final Shoulder - Swab Laboratory Results 01/02/17 05:13 01/02/17 05:13 01/03/17 01/04/17 01/05/17 05:59 05:59 05:59 Intake Total 1750 850 Output Total 7689 1749 Balance -625 -1775 ESR 51 MM/HR (0-20) H 01/02/17 05:13 C-Reactive Protein 175.4 mg/L (<10.0) H 01/02/17 05:13 ICD10 Worksheet Patient Problems: Problems Problem Status Onset DVT (deep venous thrombosis) Acute Septic joint of left shoulder region Acute
--- NOTE | 2017-01-04 11:08 | PDIAF ---
- Diagnosis Diagnosis: L shoulder postoperative infection Code Status: Full Code - Medication Management Discharge Medications: Medications to Continue on Transfer Aspirin [Aspirin 81mg (*)] 81 mg PO DAILY 01/01/17 [Last Taken 01/01/17] Ibuprofen [Motrin (*)] 400 - 600 mg PO HS PRN 01/01/17 [Last Taken Unknown] Multivitamins [Multivitamin (*)] 1 each PO DAILY 01/01/17 [Last Taken 01/01/17] oxyCODONE IR [Oxycodone Ir (*)] 5 mg PO DAILY PRN 01/01/17 [Last Taken 12/31/16 21:00] Road Patcher Antibiotics: Vancomycin 1.25g IV q 12 hours Snf Antibiotic Stop Date: 01/15/17 Discharge Medications: Refer to the Discharge Home Medication list for PRN reason. PICC Care - Routine: Yes - Orders Services needed: Registered Nurse - Labs/Radiology CBC Date: 01/11/17 (weekly) CMP Date: 01/11/17 (weekly) Vanco Trough Date and Time: 01/07/17 and twice weekly thereafter q mon and th Call or Fax Lab and Imaging Results to: Dr. Brennen Jaramillo - Follow Up Care Current Providers and Referrals: Reanna Zheng DO [Primary Care Provider] - As per Instructions
--- NOTE | 2017-01-04 17:24 | PCMIDPN ---
Assessment/Plan: Assessment: Left shoulder postoperative infection-septic arthritis with Staphylococcus capitis. Patient has an underlying story of an allergic response when he was a young child to penicillin. He is stable on vancomycin and clinically is improved with regards to pain. Will plan to treat him for 2 weeks status post washout on 01/02/2017. Will have a PICC placed and will fell out inter agency formed to continue IV vancomycin through that time. Plan: 1. Continue vancomycin monotherapy at 1.25 g IV q.12 hours. 2. PICC line placement. 3. Set up laboratory draws as an outpatient with vancomycin trough checks Q Wednesday and . 4. Inter agency form completed. Follow-up in office in approximately 1 week. Subjective: Patient is feeling much better. His left shoulder pain is well controlled. No new complaints. Denies any rash. Denies any diarrhea. Objective: Vancomycin # 12/15 Vital Signs Temp Pulse Resp BP Pulse Ox 36.9 C 74 15 181/92 H 92 01/04/17 17:19 01/04/17 17:19 01/04/17 17:19 01/04/17 17:19 01/04/17 17:19 Microbiology 01/01/17 23:50 Gram Stain - Final Shoulder - Anaerobic Tube/Swab 01/01/17 23:50 Gram Stain - Final Shoulder - Swab Laboratory Results 01/02/17 05:13 01/02/17 05:13 01/03/17 01/04/17 01/05/17 05:59 05:59 05:59 Intake Total 7269 352 2412 Output Total 2375 2625 Balance -625 -1775 1000 ESR 51 MM/HR (0-20) H 01/02/17 05:13 C-Reactive Protein 175.4 mg/L (<10.0) H 01/02/17 05:13 - Physical Exam General Appearance: WD/WN, alert, no apparent distress, non-toxic Respiratory: lungs clear, normal breath sounds, No respiratory distress Cardiac/Chest: regular rate, rhythm, No tachycardia Extremities: No non-tender, No normal inspection (Left shoulder status post surgery. Dressing intact. No surrounding erythema.) Skin: normal color, warm/dry, No rash Neuro/Psych: alert, normal mood/affect, oriented x 3 ICD10 Worksheet Patient Problems: Problems Problem Status Onset DVT (deep venous thrombosis) Acute Septic joint of left shoulder region Acute
[2017-01-05 05:39] LABS: ANION GAP 8 mEq/L (8-16); CALCIUM 9.3 mg/dL (8.5-10.4); CARBON DIOXIDE 25 mEq/l (22-31); CHLORIDE 107 mEq/L (97-110); CREATININE 0.8 mg/dL (0.7-1.3); GLOMERULAR FILTRATION RATE > 60; GLUCOSE 99 mg/dL (70-100); POTASSIUM 4.3 mEq/L (3.5-5.2); SODIUM 140 mEq/L (134-144)
[2017-01-05 08:16] VITALS: BP 108/77; PULSE 63; RESP 15; TEMP 97.7; O2SAT 93
[2017-01-05] MEDS: VANCOMYCIN 1.25 GM in D5W 250 ML IV SCH (10:03)
[2017-01-05] MEDS: ENOXAPARIN 80 MG/0.8 ML SYR SC SCH (10:03)
[2017-01-05] MEDS ORDERED: oxyCODONE IR 5 MG TAB PO PRN (13:14)
[2017-01-05] MEDS ORDERED: IBUPROFEN 200 MG TAB PO PRN (13:14)
--- NOTE | 2017-01-05 13:31 | PDIAF ---
- Diagnosis Diagnosis: L shoulder postoperative infection Code Status: Full Code - Medication Management Discharge Medications: Medications to Continue on Transfer Aspirin [Aspirin 81mg (*)] 81 mg PO DAILY 01/01/17 [Last Taken 01/01/17] Ibuprofen [Motrin (*)] 400 - 600 mg PO HS PRN 01/01/17 [Last Taken Unknown] Multivitamins [Multivitamin (*)] 1 each PO DAILY 01/01/17 [Last Taken 01/01/17] oxyCODONE IR [Oxycodone Ir (*)] 5 mg PO DAILY PRN 01/01/17 [Last Taken 12/31/16 21:00] Vancomycin [Vancomycin (*)] 1.25 gm IV Q12H #0 vial 01/05/17 [Last Taken Unknown ] Electronic Plotting System Operator Antibiotics: Vancomycin 1.25g IV q 12 hours [facility]iary Antibiotic Stop Date: 01/15/17 Discharge Medications: Refer to the Discharge Home Medication list for PRN reason. PICC Care - Routine: Yes - Orders Services needed: Registered Nurse Diet Recommendation: no restrictions on diet Diet Texture: Regular Texture Diet Additional: continue physical therapy/exercises as directed by Dr Tabares - Labs/Radiology CBC Date: 01/11/17 (weekly) CMP Date: 01/11/17 (weekly) Vanco Trough Date and Time: 01/07/17 and twice weekly thereafter q mon and thurs Call or Fax Lab and Imaging Results to: Dr. Brennen Jaramillo - Follow Up Care Current Providers and Referrals: Reanna Zheng DO [Primary Care Provider] -
--- NOTE | 2017-01-05 14:57 | PDIAF ---
- Diagnosis Diagnosis: L shoulder postoperative infection Code Status: Full Code - Medication Management Discharge Medications: Medications to Continue on Transfer Aspirin [Aspirin 81mg (*)] 81 mg PO DAILY 01/01/17 [Last Taken 01/01/17] Ibuprofen [Motrin (*)] 400 - 600 mg PO HS PRN 01/01/17 [Last Taken Unknown] Multivitamins [Multivitamin (*)] 1 each PO DAILY 01/01/17 [Last Taken 01/01/17] oxyCODONE IR [Oxycodone Ir (*)] 5 mg PO DAILY PRN 01/01/17 [Last Taken 12/31/16 21:00] Apixaban [Eliquis] 5 mg PO BID #60 tab 01/05/17 [Last Taken Unknown] Vancomycin [Vancomycin (*)] 1.25 gm IV Q12H #0 vial 01/05/17 [Last Taken Unknown ] Assisted Antibiotics: Vancomycin 1.25g IV q 12 hours Sister Superior Antibiotic Stop Date: 01/15/17 Discharge Medications: Refer to the Discharge Home Medication list for PRN reason. PICC Care - Routine: Yes - Orders Services needed: Registered Nurse Diet Recommendation: no restrictions on diet Diet Texture: Regular Texture Diet Additional: continue physical therapy/exercises as directed by Dr Tabares - Labs/Radiology CBC Date: 01/11/17 (weekly) CMP Date: 01/11/17 (weekly) Vanco Trough Date and Time: 01/07/17 and twice weekly thereafter q mon and thurs Call or Fax Lab and Imaging Results to: Dr. Brennen Jaramillo - Follow Up Care Current Providers and Referrals: Reanna Zheng DO [Primary Care Provider] -
--- NOTE | 2017-01-05 16:16 | PDDCSUM ---
Discharge Summary Discharge Summary: DISCHARGE DIAGNOSES: -Septic arthritis of left shoulder approximately 2 weeks after left rotator cuff surgery -Methicillin-resistant Staphylococcus capitis growth and wound cultures -Acute DVT of left upper extremity -Obstructive sleep apnea CONSULTANTS: Dr. Fields of Orthopedics PROCEDURES: Surgical washout of left shoulder joint HOSPITAL COURSE SUMMARY: This patient had had rotator cuff surgery on the left approximately 2 weeks before presenting here with fever and increasing pain decreasing mobility of the joint. He was found to have some septic arthritis of the left shoulder. This was treated after cultures obtained with IV antibiotics including vancomycin. Cultures have grown a Staph capitis which is resistant to methicillin. He did go to the operating room and had surgical washout any tolerated that well. At this point is fevers are resolving and he is having decreased pain. Was also found to have DVT in this upper extremity is started on anticoagulation which is tolerating well. There has been no sign of PE. Patient also gave a history of chronic sleep apnea at home. This seemed to improve initially at home after he lost weight but he had not tolerated CPAP and never took at home. He however has noticed gain of weight recently in return of sleep apnea symptoms. He was counseled on the risks of sleep apnea and the variety of options for treating it and instructed to follow up with Dr. Umanzor whom he has previously had for sleep evaluation. MEDICATION CHANGES: Addition of IV vancomycin which will go on for 6 weeks with home IV therapy via PICC catheter Addition of Eliquis 5 mg twice daily for 3 months FOLLOW-UP PLAN: -with Dr. Badillo per his instructions -With his primary care physician regarding his anticoagulation -He was counseled on the importance of managing sleep apnea, and at the time of discharge is referred to Dr. Umanzor who had seen previously for his sleep apnea Greater than 35 minutes bedside and care coordination time today
[2017-01-06] MEDS ORDERED: MULTIVITAMINS 1 EACH TAB PO SCH (09:00)
[2017-01-06] MEDS ORDERED: ASPIRIN 81 MG CHEWABLE TAB PO SCH (09:00)
== END 2017-01-05 15:43 | disposition home health service (06) | DRG 511 ==
LOC: F3N 21:54
PROVIDERS: ADMIT Internal Medicine; ATTEND Internal Medicine
PROC: 0RBK4ZZ Excision of Left Shoulder Joint, Percutaneous Endoscopic Approach (ICD-10-PCS; principal; 2017-01-01 23:10)
PROC: 3E1U38Z Irrigation of Joints using Irrigating Substance, Percutaneous Approach (ICD-10-PCS; principal; 2017-01-01 23:10)
PROC: 02HV33Z Insertion of Infusion Device into Superior Vena Cava, Percutaneous Approach (ICD-10-PCS; 2017-01-04)
DX: M00.012 Staphylococcal arthritis, left shoulder (principal); I82.B12 Acute embolism and thrombosis of left subclavian vein; G47.33 Obstructive sleep apnea (adult) (pediatric); Z87.891 Personal history of nicotine dependence; Z98.1 Arthrodesis status; Z79.82 Long term (current) use of aspirin; Z86.73 Personal history of transient ischemic attack (TIA), and cerebral infarction without residual deficits; Z86.718 Personal history of other venous thrombosis and embolism
CPT/HCPCS: 96365; C1751; C1769; J0330; J1100; J1170; J1650; J2370; J2405; J2704; J3010; J3370

== ENCOUNTER → 2018-03-16 | Outpatient (CLI) | payer OTHER, BC | LOC: FIMAGING 10:31 | PROVIDERS: ATTEND Internal Medicine | DX: K76.9 Liver disease, unspecified (principal) ==